=== PATIENT | male | born 1960 ===

== ENCOUNTER 2020-07-20 18:08 | Inpatient (IN) | payer OTHER ==
--- NOTE | 2020-07-20 18:37 | HP ---
COWS - Scale Resting Pulse: 1= [place] 81-100 Sweatin= Chills/Flushing Restless Observation: 1= Difficult to Sit Still Pupil Size: 1= Pupils >than Normal Bone or Joint Aches: 2= Severe Diffuse Aches Runny Nose/ Eye Tearin= Runny Nose/Eyes GI Upset > 30mins: 2= Nausea/Diarrhea Tremor Observation: 1= Tremor [place], Not Seen Yawning Observation: 1= 1-2x During Session Anxiety or Irritability: 1=Feels Anxious/Irritable Goose Flesh Skin: 3=Piloerection COWS Score: 16 CIWA Score Nausea/Vomitin Muscle Tremors: 2 Anxiety: 2 Agitation: 2 Paroxysmal Sweats: 2 Orientation: 0-Oriented Tacttile Disturbances: 2-Mild Itch/Numbness/Burn Auditory Disturbances: 1-Very Mild Visual Disturbances: 0-None Headache: 2-Mild CIWA-Ar Total Score: 15 - Admission Criteria [facility] Guidelines: Admission for Medically Managed Detox: Requires at least one of the followin. CIWA greater than 12 2. Seizures within the past 24 hours 3. Delirium tremens within the past 24 hours 4. Hallucinations within the past 24 hours 5. Acute intervention needed for co occurring medical disorder 6. Acute intervention needed for co occurring psychiatric disorder 7. Severe withdrawal that cannot be handled at a lower level of care (continued vomiting, continued diarrhea, abnormal vital signs) requiring intravenous medication and/or fluids 8. Admission [facility] Chief Complaint: I need detox from alcohol and heroin Allergies/Adverse Reactions: Allergies Allergy/AdvReac Type Severity Reaction Status Date / Time No Known Allergies Allergy Verified 07/20/20 18:34 History of Present Illness: Patient is a 60 years old man who presents for detox from alcohol and heroin. He reports blackout and seizure 3 days ago. He denies overdose, this is his first time in detox. Patient uses street methadone Exam Limitations: No Limitations - Ebola screening Have you traveled outside of the country in the last 21 days: No Have you had contact with anyone from an Ebola affected area: No Have you been sick,other than usual withdrawal symptoms: No Do you have a fever: No - Review of Systems Constitutional: Chills, Loss of Appetite, Changes in sleep, Unintentional Wgt. Loss EENT: reports: Nose Congestion Respiratory: reports: No Symptoms reported Cardiac: reports: No Symptoms Reported GI: reports: Nausea, Poor Appetite, Poor Fluid Intake, Abdominal cramping : reports: No Symptoms Reported Musculoskeletal: reports: Joint Pain, Muscle Pain, Muscle Weakness Integumentary: reports: Sweating Neuro: reports: Headache, Numbness, Tremors Endocrine: reports: No Symptoms Reported Hematology: reports: No Symptoms Reported Psychiatric: reports: Anxious, Depressed Other Systems: Reviewed and Negative Patient History - Patient Medical History Hx Anemia: Yes Hx Asthma: No Hx Chronic Obstructive Pulmonary Disease (COPD): No Hx Cancer: No Hx Cardiac Disorders: No Hx Congestive Heart Failure: No Hx Hypertension: No Hx Hypercholesterolemia: No Hx Pacemaker: No HX Cerebrovascular Accident: No Hx Seizures: Yes Hx Dementia: No Hx Diabetes: Yes Hx Gastrointestinal Disorders: No Hx Liver Disease: No Hx Genitourinary Disorders: No Hx Sexually Transmitted Disorders: No Hx Renal Disease (ESRD): No Hx Thyroid Disease: No Hx Human Immunodeficiency Virus (HIV): No Hx Hepatitis C: No Hx Depression: No Hx Suicide Attempt: No Hx Bipolar Disorder: No Hx Schizophrenia: No - Patient Surgical History Past Surgical History: No - PPD History Previous Implant?: No Implanted On Prior [facility] Admission?: No PPD to be Administered?: Yes - Smoking Cessation Smoking history: Current every day smoker Have you smoked in the past 12 months: Yes Aproximately how many cigarettes per day: 10 Hx Chewing Tobacco Use: No Initiated information on smoking cessation: Yes 'Breaking Loose' booklet given: 07/20/20 - Substance & Tx. History Hx Alcohol Use: Yes Hx Substance Use: Yes Substance Use Type: Alcohol, Marijuana, Opiates Hx Substance Use Treatment: No - Substances abused Alcohol Other (specify): bacardi, beer Substance route: Oral Frequency: Daily Amount used: 2 pints, 10 beers Age of first use: 16 Date of last use: 07/20/20 Heroin Substance route: Inhalation Frequency: Daily Amount used: 10 bags Age of first use: 15 Date of last use: 07/19/20 Non-Rx Methadone Amount used: 90mg Age of first use: 20 Date of last use: 07/17/20 Marijuana/Hashish Substance route: Smoking Amount used: $100 Age of first use: 15 Date of last use: 07/17/20 Admission Physical Exam BHS - Physical General Appearance: Yes: No Apparent Distress HEENTM: Yes: Hearing grossly Normal, Normocephalic, Normal Voice Respiratory: Yes: Chest Non-Tender, Lungs Clear, Normal Breath Sounds, No Respiratory Distress, No Accessory Muscle Use Neck: Yes: No masses,lesions,Nodules, Supple Breast: Yes: Breast Exam Deferred Cardiology: Yes: Regular Rhythm, Regular Rate, S1, S2 Abdominal: Yes: Normal Bowel Sounds, Non Tender, Soft Genitourinary: Yes: Within Normal Limits Back: Yes: Normal Inspection Musculoskeletal: Yes: Back pain, Muscle Pain, Muscle weakness Extremities: Yes: Tremors Neurological: Yes: project management specialist II-XII NML intact, Fully Oriented, Alert, Normal Mood/Affect, Normal Response Integumentary: Yes: Normal Color, Cold Lymphatic: Yes: Within Normal Limits - Diagnostic (1) Alcohol dependence with withdrawal Current Visit: Yes Status: Acute Qualifiers: Complication of substance-induced condition: uncomplicated Qualified Code(s): F10.230 - Alcohol dependence with withdrawal, uncomplicated (2) Opioid dependence with withdrawal Current Visit: Yes Status: Acute (3) Nicotine dependence with withdrawal Current Visit: Yes Status: Acute Qualifiers: Nicotine product type: cigarettes Qualified Code(s): F17.213 - Nicotine dependence, cigarettes, with withdrawal (4) Marijuana abuse Current Visit: Yes Status: Acute Cleared for Admission [facility] - Detox or Rehab [facility] Level of Care: Medically Managed Detox Regimen/Protocol: Methadone/Librium Claeared for Rehab Admission: No Breathalyzer - Breathalyzer Breathalyzer: 0.041 Urine Drug Screen - Test Device Lot number: [id number] Expiration date: 02/19/22 - Control Is test valid?: Yes - Results Drug screen NEGATIVE: No Urine drug screen results: THC-Marijuana, FEN-Fentanyl, MOP-Opiates, MTD- Methadone Inpatient Rehab Admission - Rehab Decision to Admit Inpatient rehab admission?: No
[2020-07-20] MEDS ORDERED: NALOXONE HCL 0.4 MG/ML VIAL IM PRN (18:46)
[2020-07-20] MEDS ORDERED: MAG HYDROX/AL HYDROX/SIMETH 30 ML UNIT-DOSE CUP PO PRN (18:46)
[2020-07-20] MEDS ORDERED: cloNIDine HCL 0.1 MG TABLET PO PRN (18:46)
[2020-07-20] MEDS ORDERED: MENTHOL/PHENOL 1 EACH UD MM PRN (18:46)
[2020-07-20] MEDS ORDERED: MAGNESIUM CITRATE 300 ML BOTTLE PO PRN (18:46)
[2020-07-20] MEDS ORDERED: METHOCARBAMOL 500 MG TABLET PO PRN (18:46)
[2020-07-20] MEDS ORDERED: BISMUTH SUBSALICYLATE 524 MG/30 ML UD PO PRN (18:46)
[2020-07-20] MEDS ORDERED: ACETAMINOPHEN 325 MG TABLET (FP) PO PRN ×2 (18:46)
[2020-07-20] MEDS ORDERED: NICOTINE POLACRILEX 2 MG GUM BUC PRN (18:46)
[2020-07-20] MEDS ORDERED: chlordiazePOXIDE HCL 10 MG CAPSULE PO PRN (18:46)
[2020-07-20] MEDS ORDERED: MAGNESIUM HYDROX 2400MG/30ML ORAL SUSPENSION 30 ML CUP PO PRN (18:46)
[2020-07-20] MEDS ORDERED: IBUPROFEN 400 MG TABLET (FP) PO PRN (18:46)
[2020-07-20 19:39] VITALS: BMI 21.7
[2020-07-20] MEDS ORDERED: METHADONE HCL 10 MG TABLET (FOR DETOX USE ONLY) PO ONE (20:00)
[2020-07-20] MEDS: chlordiazePOXIDE HCL 25 MG CAPSULE PO SCH (20:48)
[2020-07-20] MEDS: MELATONIN 5 MG TABLETS PO SCH (21:51)
[2020-07-20] MEDS: THIAMINE HCL 100 MG TABLET (FP) PO SCH (21:51)
[2020-07-21] MEDS: chlordiazePOXIDE HCL 25 MG CAPSULE PO SCH ×3 (05:20→21:12)
[2020-07-21] MEDS: INSULIN SLIDING SCALE (NOVOLOG) 1 VIAL SQ SCH ×3 (08:00→21:12)
--- NOTE | 2020-07-21 08:20 | PN ---
S Progress Note Note: Patient's blood sugar was 434mg/dl. Patient is asymptomatic CBC,CMP POC Glucometer 434 UNITS (80-120) 07/21/20 05:23 Action: Insulin sliding scale initiated BGM initiated
[2020-07-21] MEDS ORDERED: METHADONE HCL 5 MG TABLET (FOR DETOX USE ONLY) PO ONE (10:00)
[2020-07-21 10:10] LABS: HEMATOCRIT 40.9 % (35.4-49); HEMOGLOBIN 13.7 GM/dL (11.7-16.9); MCH 33.7 pg (25.7-33.7); MCHC 33.4 g/dl (32.0-35.9); MEAN CELL VOLUME 100.9 fl (80-96); MEAN PLT VOLUME 8.7 fl (7.5-11.1); PLATELET COUNT 246 K/MM3 (134-434); RBC 4.06 M/mm3 (4.00-5.60); RDW 12.9 % (11.9-15.9); WHITE BLOOD COUNT 6.7 K/mm3 (4.0-10.0)
[2020-07-21 10:20] LABS: ALBUMIN 3.6 g/dl (3.4-5.0); BILIRUBIN,TOTAL 0.7 mg/dL (0.2-1); CALCIUM 9.1 mg/dL (8.5-10.1); CREATININE 0.7 mg/dL (0.55-1.3); TOT PROT 6.9 g/dl (6.4-8.2)
[2020-07-21] MEDS: PRENATAL VITAMINS W/ FOLIC ACID TABLET (FP) PO SCH (10:30)
[2020-07-21] MEDS: NICOTINE 7 MG/24 HOURS TOPICAL PATCH TD SCH (10:31)
--- NOTE | 2020-07-21 12:46 | EKG ---
Test Reason : Blood Pressure : / mmHG Vent. Rate : 086 BPM Atrial Rate : 086 BPM P-R Int : 146 ms QRS Dur : 084 ms QT Int : 406 ms P-R-T Axes : 061 -29 054 degrees QTc Int : 485 ms NORMAL SINUS RHYTHM POSSIBLE LEFT ATRIAL ENLARGEMENT PROLONGED QT ABNORMAL ECG NO PREVIOUS ECGS AVAILABLE Confirmed by Josh Dick ([id number]) on 07/21/2020 12:45:44 PM Referred By: Confirmed By:Josh Dick
--- NOTE | 2020-07-21 14:05 | PN ---
S CIWA - CIWA Score Nausea/Vomitin Muscle Tremors: 2 Anxiety: 2 Agitation: 2 Paroxysmal Sweats: 1-Minimal Palms Moist Orientation: 0-Oriented Tacttile Disturbances: 1-Very Mild Itch/Numbness Auditory Disturbances: 0-None Visual Disturbances: 0-None Headache: 2-Mild CIWA-Ar Total Score: 12 BHS COWS - Scale Resting Pulse: 0= [place] 80 or Below Sweatin= No chills or Flushing Restless Observation: 0= Sits Still Pupil Size: 1= Pupils >than Normal Bone or Joint Aches: 1= Mild Discomfort Runny Nose/ Eye Tearin= Nasal Congestion GI Upset > 30mins: 2= Nausea/Diarrhea Tremor Observation of Outstretched Hands: 2= Slight Tremor Visible Yawning Observation: 1= 1-2x During Session Anxiety or Irritability: 2=Irritable/Anxious Goose Flesh Skin: 0=Smooth Skin COWS Score: 10 BHS Progress Note (SOAP) Subjective: alert,irritable,anxious,interrupted sleep,pain in the body and back,aching pain Objective: 07/21/20 14:09 Vital Signs Temperature 98.8 F 07/21/20 13:03 Pulse Rate 73 07/21/20 13:03 Respiratory Rate 18 07/21/20 13:03 Blood Pressure 90/53 L 07/21/20 13:03 O2 Sat by Pulse Oximetry (%) 95 07/21/20 13:03 Laboratory Last Values WBC 6.7 K/mm3 (4.0-10.0) 07/21/20 07:40 RBC 4.06 M/mm3 (4.00-5.60) 07/21/20 07:40 Hgb 13.7 GM/dL (11.7-16.9) 07/21/20 07:40 Hct 40.9 % (35.4-49) 07/21/20 07:40 MCV 100.9 fl (80-96) H 07/21/20 07:40 MCH 33.7 pg (25.7-33.7) 07/21/20 07:40 MCHC 33.4 g/dl (32.0-35.9) 07/21/20 07:40 RDW 12.9 % (11.9-15.9) 07/21/20 07:40 Plt Count 246 K/MM3 (134-434) 07/21/20 07:40 MPV 8.7 fl (7.5-11.1) 07/21/20 07:40 Sodium 135 mmol/L (136-145) L 07/21/20 07:40 Potassium 4.0 mmol/L (3.5-5.1) 07/21/20 07:40 Chloride 98 mmol/L (98-107) 07/21/20 07:40 Carbon Dioxide 29 mmol/L (21-32) 07/21/20 07:40 Anion Gap 8 MMOL/L (8-16) 07/21/20 07:40 BUN 13.0 mg/dL (7-18) 07/21/20 07:40 Creatinine 0.7 mg/dL (0.55-1.3) 07/21/20 07:40 Est GFR (CKD-EPI)AfAm 120.56 07/21/20 07:40 Est GFR (CKD-EPI)NonAf 104.02 07/21/20 07:40 POC Glucometer 434 UNITS (80-120) 07/21/20 05:23 Random Glucose 423 mg/dL (74-106) H* 07/21/20 07:40 Hemoglobin A1c % 13.4 % (4.2-6.3) H 07/21/20 09:15 Calcium 9.1 mg/dL (8.5-10.1) 07/21/20 07:40 Total Bilirubin 0.7 mg/dL (0.2-1) 07/21/20 07:40 AST 15 U/L (15-37) 07/21/20 07:40 ALT 22 U/L (13-61) 07/21/20 07:40 Alkaline Phosphatase 138 U/L (45-117) H 07/21/20 07:40 Total Protein 6.9 g/dl (6.4-8.2) 07/21/20 07:40 Albumin 3.6 g/dl (3.4-5.0) 07/21/20 07:40 Syphilis Serology Non-reactive (NONREACTIVE) 07/21/20 07:40 Assessment: 07/21/20 14:10 withdrawal symptom Plan: continue methadone and librium regimen,bgm monitoring with insulin coverage
[2020-07-21] MEDS ORDERED: INSULIN (NOVOLOG) ASPART 100 UNITS/ML 10ML VIAL SQ ONE (18:11)
[2020-07-21] MEDS: MELATONIN 5 MG TABLETS PO SCH (21:12)
[2020-07-21] MEDS: THIAMINE HCL 100 MG TABLET (FP) PO SCH (21:13)
[2020-07-22] MEDS ORDERED: chlordiazePOXIDE 5 MG CAPSULE PO SCH (05:00)
[2020-07-22 06:24] VITALS: TEMP 96.9
[2020-07-22] MEDS: INSULIN SLIDING SCALE (NOVOLOG) 1 VIAL SQ SCH (06:36)
[2020-07-22] MEDS ORDERED: INSULIN SLIDING SCALE (NOVOLOG) 1 VIAL SQ ONE (06:47)
[2020-07-22 09:12] VITALS: BP 108/78; PULSE 111
[2020-07-22] MEDS ORDERED: metFORMIN HCL 500 MG TABLET (FP) PO ONE (10:00)
[2020-07-22] MEDS ORDERED: METHADONE HCL 10 MG TABLET (FOR DETOX USE ONLY) PO ONE (10:00)
[2020-07-22] MEDS: PRENATAL VITAMINS W/ FOLIC ACID TABLET (FP) PO SCH (10:14)
[2020-07-22] MEDS: NICOTINE 7 MG/24 HOURS TOPICAL PATCH TD SCH (10:15)
--- NOTE | 2020-07-22 10:20 | PN ---
[facility] CIWA - CIWA Score Nausea/Vomitin-Mild Nausea/No Vomiting Muscle Tremors: 2 Anxiety: 2 Agitation: 2 Paroxysmal Sweats: No Perspiration Orientation: 0-Oriented Tacttile Disturbances: 1-Very Mild Itch/Numbness Auditory Disturbances: 0-None Visual Disturbances: 0-None Headache: 1-Very Mild CIWA-Ar Total Score: 9 BHS COWS - Scale Resting Pulse: 2= [place] 101-120 Sweatin= No chills or Flushing Restless Observation: 0= Sits Still Pupil Size: 0= Normal to Room Light Bone or Joint Aches: 1= Mild Discomfort Runny Nose/ Eye Tearin= Nasal Congestion GI Upset > 30mins: 1= Stomach Cramp Tremor Observation of Outstretched Hands: 2= Slight Tremor Visible Yawning Observation: 1= 1-2x During Session Anxiety or Irritability: 2=Irritable/Anxious Goose Flesh Skin: 0=Smooth Skin COWS Score: 10 S Progress Note (SOAP) Subjective: alert,oriented x 3,ambulation on the unit,aching pain in the body and extremities,tremor,interrupted sleep Objective: 07/22/20 10:17 Vital Signs Temperature 96.9 F L 07/22/20 08:32 Pulse Rate 111 H 07/22/20 08:32 Respiratory Rate 20 07/22/20 08:32 Blood Pressure 108/78 07/22/20 08:32 O2 Sat by Pulse Oximetry (%) 95 07/22/20 05:00 Laboratory Last Values WBC 6.7 K/mm3 (4.0-10.0) 07/21/20 07:40 RBC 4.06 M/mm3 (4.00-5.60) 07/21/20 07:40 Hgb 13.7 GM/dL (11.7-16.9) 07/21/20 07:40 Hct 40.9 % (35.4-49) 07/21/20 07:40 MCV 100.9 fl (80-96) H 07/21/20 07:40 MCH 33.7 pg (25.7-33.7) 07/21/20 07:40 MCHC 33.4 g/dl (32.0-35.9) 07/21/20 07:40 RDW 12.9 % (11.9-15.9) 07/21/20 07:40 Plt Count 246 K/MM3 (134-434) 07/21/20 07:40 MPV 8.7 fl (7.5-11.1) 07/21/20 07:40 Sodium 135 mmol/L (136-145) L 07/21/20 07:40 Potassium 4.0 mmol/L (3.5-5.1) 07/21/20 07:40 Chloride 98 mmol/L (98-107) 07/21/20 07:40 Carbon Dioxide 29 mmol/L (21-32) 07/21/20 07:40 Anion Gap 8 MMOL/L (8-16) 07/21/20 07:40 BUN 13.0 mg/dL (7-18) 07/21/20 07:40 Creatinine 0.7 mg/dL (0.55-1.3) 07/21/20 07:40 Est GFR (CKD-EPI)AfAm 120.56 07/21/20 07:40 Est GFR (CKD-EPI)NonAf 104.02 07/21/20 07:40 POC Glucometer 423 UNITS (80-120) 07/22/20 05:10 Random Glucose 423 mg/dL (74-106) H* 07/21/20 07:40 Hemoglobin A1c % 13.4 % (4.2-6.3) H 07/21/20 09:15 Calcium 9.1 mg/dL (8.5-10.1) 07/21/20 07:40 Total Bilirubin 0.7 mg/dL (0.2-1) 07/21/20 07:40 AST 15 U/L (15-37) 07/21/20 07:40 ALT 22 U/L (13-61) 07/21/20 07:40 Alkaline Phosphatase 138 U/L (45-117) H 07/21/20 07:40 Total Protein 6.9 g/dl (6.4-8.2) 07/21/20 07:40 Albumin 3.6 g/dl (3.4-5.0) 07/21/20 07:40 Syphilis Serology Non-reactive (NONREACTIVE) 07/21/20 07:40 Assessment: 07/22/20 10:18 withdrawal symptom Plan: continue detox methadone and librium regimen,metformin 500 mgs po now then bidac,bgm monitoring achs with insulin coverage sliding scale, hydration,water,fluid,dietiticain consultation for new onset of dm teaching on diet
--- NOTE | 2020-07-22 10:29 | PN ---
[facility] Progress Note Note: patient could not complete treatment,stated that he has to leave to care for elder mother who has dm and seizure,all attempts to convince patient to stay with no avail,high risks of relapsing explained and understood,also understood of new onset of diabetic with high blood glucose,need medications and inulin to get glucose under control,patient signed release against medical advice,the risks of leaving including seizure,coma,,permanent disability explained patient stated that he will go to [facility] 3 blocks away from his house right away after discharge
--- NOTE | 2020-07-22 10:34 | DS ---
[facility] Detox Discharge Summary Admission Date: 07/20/20 Discharge Date: 07/22/20 - History Present History: Alcohol Dependence, Cannabis Dependence, Opioid Dependence Additional Comments: alert,oriented x 3 ambulation on the unit lung clear on auscultation bilaterally abdomen soft,no distension,no pain,no tenderness no edema of the legs patient signed release against medical advise please see the progress note stated will go to [facility] emergency room which is 3 blocks away from his house for emergency treatment of new onset uncontrolled diabetes management,to call 911 if not feeling well, left the unit in stable condition Pertinent Past History: nicotine dependence - Physical Exam Results Vital Signs: Vital Signs Temperature 96.9 F L 07/22/20 08:32 Pulse Rate 111 H 07/22/20 08:32 Respiratory Rate 20 07/22/20 08:32 Blood Pressure 108/78 07/22/20 08:32 O2 Sat by Pulse Oximetry (%) 95 07/22/20 05:00 Pertinent Admission Physical Exam Findings: withdrawal signs and symptom Laboratory Last Values WBC 6.7 K/mm3 (4.0-10.0) 07/21/20 07:40 RBC 4.06 M/mm3 (4.00-5.60) 07/21/20 07:40 Hgb 13.7 GM/dL (11.7-16.9) 07/21/20 07:40 Hct 40.9 % (35.4-49) 07/21/20 07:40 MCV 100.9 fl (80-96) H 07/21/20 07:40 MCH 33.7 pg (25.7-33.7) 07/21/20 07:40 MCHC 33.4 g/dl (32.0-35.9) 07/21/20 07:40 RDW 12.9 % (11.9-15.9) 07/21/20 07:40 Plt Count 246 K/MM3 (134-434) 07/21/20 07:40 MPV 8.7 fl (7.5-11.1) 07/21/20 07:40 Sodium 135 mmol/L (136-145) L 07/21/20 07:40 Potassium 4.0 mmol/L (3.5-5.1) 07/21/20 07:40 Chloride 98 mmol/L (98-107) 07/21/20 07:40 Carbon Dioxide 29 mmol/L (21-32) 07/21/20 07:40 Anion Gap 8 MMOL/L (8-16) 07/21/20 07:40 BUN 13.0 mg/dL (7-18) 07/21/20 07:40 Creatinine 0.7 mg/dL (0.55-1.3) 07/21/20 07:40 Est GFR (CKD-EPI)AfAm 120.56 07/21/20 07:40 Est GFR (CKD-EPI)NonAf 104.02 07/21/20 07:40 POC Glucometer 423 UNITS (80-120) 07/22/20 05:10 Random Glucose 423 mg/dL (74-106) H* 07/21/20 07:40 Hemoglobin A1c % 13.4 % (4.2-6.3) H 07/21/20 09:15 Calcium 9.1 mg/dL (8.5-10.1) 07/21/20 07:40 Total Bilirubin 0.7 mg/dL (0.2-1) 07/21/20 07:40 AST 15 U/L (15-37) 07/21/20 07:40 ALT 22 U/L (13-61) 07/21/20 07:40 Alkaline Phosphatase 138 U/L (45-117) H 07/21/20 07:40 Total Protein 6.9 g/dl (6.4-8.2) 07/21/20 07:40 Albumin 3.6 g/dl (3.4-5.0) 07/21/20 07:40 Syphilis Serology Non-reactive (NONREACTIVE) 07/21/20 07:40 new onset of diabetes mellitus Vital Signs Temperature 96.9 F L 07/22/20 08:32 Pulse Rate 111 H 07/22/20 08:32 Respiratory Rate 20 07/22/20 08:32 Blood Pressure 108/78 07/22/20 08:32 O2 Sat by Pulse Oximetry (%) 95 07/22/20 05:00 - Medication Discharge Medications: Ambulatory Orders metFORMIN HCL [Glucophage -] 500 mg PO BID@0700,1630 10 Days #20 tablet 07/22/20 - Diagnosis (1) Opioid dependence with withdrawal Current Visit: Yes Status: Acute (2) New onset type 2 diabetes mellitus Current Visit: Yes Status: Acute (3) Alcohol dependence with withdrawal Current Visit: Yes Status: Acute Qualifiers: Complication of substance-induced condition: uncomplicated Qualified Code(s): F10.230 - Alcohol dependence with withdrawal, uncomplicated (4) Marijuana abuse Current Visit: Yes Status: Acute (5) Nicotine dependence with withdrawal Current Visit: Yes Status: Acute Qualifiers: Nicotine product type: cigarettes Qualified Code(s): F17.213 - Nicotine dependence, cigarettes, with withdrawal (6) DM2 (diabetes mellitus, type 2) Current Visit: Yes Status: Acute (7) Uncontrolled diabetes mellitus with hyperglycemia Current Visit: Yes Status: Acute - AMA Did Patient Leave Against Medical Advice: Yes
--- NOTE | 2020-07-22 11:55 | EKG ---
Test Reason : Blood Pressure : / mmHG Vent. Rate : 070 BPM Atrial Rate : 070 BPM P-R Int : 138 ms QRS Dur : 076 ms QT Int : 440 ms P-R-T Axes : 022 -41 033 degrees QTc Int : 475 ms NORMAL SINUS RHYTHM LEFT AXIS DEVIATION ABNORMAL ECG Confirmed by MD FRANCES, YASMIN ([id number]) on 07/22/2020 11:54:34 AM Referred By: PILAR BAXTER Confirmed By:YASMIN DANIELS MD
[2020-07-22] MEDS ORDERED: metFORMIN HCL 500 MG TABLET (FP) PO SCH (16:30)
[2020-07-23] MEDS ORDERED: chlordiazePOXIDE HCL 10 MG CAPSULE PO PRN
[2020-07-23] MEDS ORDERED: chlordiazePOXIDE HCL 10 MG CAPSULE PO SCH (05:00)
[2020-07-23] MEDS ORDERED: METHADONE HCL 5 MG TABLET (FOR DETOX USE ONLY) PO ONE (06:00)
[2020-07-24] MEDS ORDERED: chlordiazePOXIDE HCL 10 MG CAPSULE PO ONE (05:00)
== END 2020-07-22 10:43 | disposition left against medical advice (07) | DRG 770 ==
LOC: YASAS 18:08 → Y3N 19:24
PROVIDERS: ADMIT Allergy & Immunology; ATTEND Allergy & Immunology
PROC: HZ2ZZZZ Detoxification Services for Substance Abuse Treatment (ICD-10-PCS; principal; 2020-07-20)
DX: F10.230 Alcohol dependence with withdrawal, uncomplicated (principal); F11.23 Opioid dependence with withdrawal; F14.20 Cocaine dependence, uncomplicated; F12.20 Cannabis dependence, uncomplicated; F17.213 Nicotine dependence, cigarettes, with withdrawal; E11.65 Type 2 diabetes mellitus with hyperglycemia; Z86.2 Personal history of diseases of the blood and blood-forming organs and certain disorders involving the immune mechanism; Z86.69 Personal history of other diseases of the nervous system and sense organs; Z79.84 Long term (current) use of oral hypoglycemic drugs
CPT/HCPCS: 36415; 80053; 82962; 83036; 85027; 86780; 93005; 93010; U0003